=== PATIENT | male | born 1955 | race Caucasian/White ===

== ENCOUNTER 2020-04-26 13:36 | Day surgery (SDC) | payer BC, SELFPAY ==
[2020-04-26 14:13] VITALS: BP 109/62; PULSE 77; RESP 17; TEMP 36.4; O2SAT 96
--- NOTE | 2020-04-26 14:20 | DI.RAD_ITS ---
EXAM: XR ANKLE LT COMPLETE CLINICAL HISTORY: pain and swelling TECHNIQUE: 2D digital imaging was performed. COMPARISON: No exams were available for comparison FINDINGS: BONES: There is an acute fracture at the junction of the middle and distal thirds of the left fibula. The distal fracture is displaced laterally 1/3 shaft's width and anteriorly 1/3 shaft's width. No bony destructive lesion is seen. There is a small plantar calcaneal spur. JOINTS:There is widening of the medial ankle joint. This may reflect ligamentous and/or syndesmotic injury. SOFT TISSUE: There is soft tissue swelling about the ankle. IMPRESSION: 1. Acute displaced transverse fracture of the distal fibula. 2. Widening of the medial aspect of the ankle mortise joint which could reflect ligamentous and/or sy ndesmotic injury. DATA REPOSITORY: RADIATION DOSE DELIVERED:
--- NOTE | 2020-04-26 14:32 | DI.VRAD_ITS ---
PROCEDURE INFORMATION: Exam: XR Left Ankle Exam date and time: 04/26/2020 2:18 PM Age: 65 years old Clinical indication: Other: Pain and swelling TECHNIQUE: Imaging protocol: XR Left ankle. Views: 3 or more views. COMPARISON: No relevant prior studies available. FINDINGS: Bones/joints: There is a transverse fracture of distal fibular shaft with 3 mm anterior displacement and 5 mm lateral displacement. There is widening of medial aspect of ankle mortise joint. There is soft tissue swelling over distal leg, most pronounced anteriorly and over and inferior to medial malleolus. There is plantar spur. There is mild ankle joint effusion. Soft tissues: See Bones/joints finding. IMPRESSION: 1. Acute transverse fracture of distal fibular shaft . 2. Widening of the medial aspect of ankle mortise joint could reflect ligamentous and /or syndesmotic injury. Might consider evaluation of the whole tibia and fibula. Dictated and Authenticated by: Mirza Huntley MD. Ordering:MANUEL Iglesias MD
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
--- NOTE | 2020-04-26 14:45 | DI.RAD_ITS ---
EXAM: XR TIB/FIB LT CLINICAL HISTORY: left distal transverse fib fx, assess fib. TECHNIQUE: 2D digital imaging was performed COMPARISON: CR,XR XR ANKLE LT COMPLETE from 04/26/2020 FINDINGS: BONES: The fracture at the junction of the middle and distal thirds of the fibula is again noted. On the lateral view, there has been increased anterior displacement. The distal fracture is displaced almost 1 shaft's width anteriorly. There is also a nondisplaced fracture at the junction of the prox imal and middle thirds of the fibula. The visualized portions of the knee are unremarkable except fo r degenerative changes. The ankle is not well visualized on the current examination. SOFT TISSUE: Normal. IMPRESSION: 1. Nondisplaced fracture of the junction of the proximal middle thirds of the left fibula. 2. Increased anterior displacement of the previously seen fracture at the junction of the middle and distal thirds of the fibula. DATA REPOSITORY: RADIATION DOSE DELIVERED:
--- NOTE | 2020-04-26 15:26 | DI.VRAD_ITS ---
PROCEDURE INFORMATION: Exam: XR Left Tibia and Fibula Exam date and time: 04/26/2020 3:06 PM Age: 65 years old Clinical indication: Injury or trauma; Fall; Initial encounter; Fracture, traumatic; Closed fracture; Fibula; Left; Additional info: Ankle xray previously taken TECHNIQUE: Imaging protocol: XR Left tibia and fibula. Views: 2 views. COMPARISON: No relevant prior studies available. FINDINGS: Bones/joints: There is a nondisplaced oblique fracture of proximal fibula. There is an oblique fibular shaft fracture which now has shortening and 7-8 mm anterior displacement Soft tissues: There is soft tissue, most anterolateral aspect IMPRESSION: Nondisplaced oblique fracture of the proximal fibular shaft. Interval increase in displacement of the distal fibular shaft fracture. Dictated and Authenticated by: Mirza Huntley MD. Ordering:MANUEL Iglesias MD
--- NOTE | 2020-04-26 16:33 | W.PM.HP.N ---
Date of service: 04/26/20 Time of Service: 16:34 Assessment and Plan Assessment and plan (1) Bimalleolar fracture of left ankle: Status: Acute Assessment and plan: Assessment: Closed bimalleolar fracture equivalent of the left ankle with disruption of the ankle mortise joint. This will require open reduction internal fixation to restore the ankle mortise. Plan: Proceed to the operating room later today for ORIF of his a bimalleolar fracture equivalent left ankle under spinal anesthesia. (2) Fracture of proximal end of fibula: Status: Acute Assessment and plan: Assessment: Fracture proximal third of left fibula minimally displaced. This will not require fixation or reduction. Plan: Symptomatic treatment only with restricted weightbearing on the left. History of Present Illness History of Present Illness Chief Complaint: L leg and ankle injury Narrative: This is a 65-year-old white male who was unloading his truck today when he slipped and fell off the back of the truck. He landed on his left ankle with an external rotation twist. In addition the object he was lifting landed on his left leg and ankle. His son came was able to help him lift the object off his leg, but he found that he could not bear any weight on his left ankle. They also noted a deformity of the ankle. He was brought to the ER at [facility] where x-rays revealed a bimalleolar fracture equivalent of his ankle, closed. The also revealed a second fracture of his fibula more proximally in the leg. The ankle mortise was disrupted with the talus shifted about a half of its width laterally. He indicates that he had nothing to eat or drink since 7 this morning. He said that if I thought that surgery was necessary he would like to have it done today then wait. Review of Systems Narrative: Admits to hypertension which he states has been well controlled with medications. He is a type II diabetic treated with oral agents only. Does not take insulin. Does not test his blood sugars regularly. Otherwise he denies any shortness of breath, chest pains. Remainder review systems is noncontributory. [facility] Medical History (Updated 04/26/20 @ 16:49 by Miguel Gamble MD) Diabetes HTN (hypertension) Hx of hyperlipidemia Surgical History (Updated 04/26/20 @ 16:30 by Kelsie Slater DO) History of umbilical hernia repair S/P left knee arthroscopy Social History Smoking/Tobacco Use Status: Never Alcohol Intake: current Alcohol Intake frequency: a few times a month Substance use type: does not use Do you feel safe at home: Yes Do you feel safe in your relationship?: Yes Meds Home Medications and Allergies Home Medications Medication Instructions Recorded Confirmed Type atorvastatin 10 mg PO DAILY 04/26/20 04/26/20 History canagliflozin [Invokana] 100 mg DAILY 04/26/20 04/26/20 History hydrochlorothiazide 25 mg PO DAILY 04/26/20 04/26/20 History lisinopril 40 mg PO DAILY 04/26/20 04/26/20 History metformin 1,000 mg PO BID 04/26/20 04/26/20 History sitagliptin [Januvia] 100 mg PO DAILY 04/26/20 04/26/20 History Allergies Allergy/AdvReac Type Severity Reaction Status Date / Time penicillin V [From Pen-Vemanohar K] AdvReac Unverified 04/26/20 16:26 Exam Narrative Exam Narrative: Left foot is somewhat externally rotated and the talus appears to be shifted laterally there is localized bruising over the tip of the medial malleolus but no break in the skin. He has normal light touch sensation to his left foot and toes. He has a superficial abrasion proximal third of the lateral leg over his fibula. He is tender to touch over the medial lateral sides of the ankle and over the fibula proximally. Const General: cooperative and healthy appearing [facility] Head: normal to inspection Ears: hearing grossly normal bilaterally General nose exam: external nose normal and no nasal discharge Face and sinus: normal facial exam Mouth: lip normal and tongue normal Teeth and gingiva: dentition normal Throat: posterior oropharynx normal Eyes General: appearance normal, both eyes and all related structures Neck Neck: full ROM, no lymphadenopathy, trachea midline, supple and no JVD Carotids: normal carotid upstroke Chest Chest: normal inspection of the chest Resp Effort & Inspection: normal respiratory effort Cardio Rate: regular rate Rhythm: regular rhythm Heart Sounds: S1 normal Pulses: brachial pulses present, radial pulses present, posterior tibial pulses present and dorsalis pedis present GI Palpation: soft Percussion: normal to percussion Auscultation: normal bowel sounds Rectal Exam: deferred Male General Exam: Yes normal external exam Neuro General: patient alert, patient oriented x3, moves all extremities and normal light touch, pain and propioception Cranial Nerves: CN's II-XI intact bilaterally Cognition: normal cognition Speech: speech normal Motor: muscle tone normal throughout Sensory Exam: no sensory deficits noted Pupils: Normal pupillary reactivity/response: bilateral Results X-rays of the left ankle and left leg are reviewed. X-rays of the leg show that he has 2 fracture of his fibula. Proximal third of the fibula there is a minimally displaced fracture. Distal third of the fibula there is a short oblique fracture that is more displaced. Medial malleolus and posterior malleolus are intact. The talus is shifted laterally one third of its width, consistent with a rupture of the deltoid ligament. Ankle joint is reduced on the lateral film. Last Vital Signs Temp 36.4 C L 04/26/20 14:13 Pulse 77 04/26/20 14:13 Resp 17 04/26/20 14:13 BP 109/62 04/26/20 14:13 Pulse Ox 96 04/26/20 14:13 COVID-19 Screening Have you,or household,traveled outside [place] in last 14 days?: No Had IN PERSON contact w/suspected or confirmed C-19 person: No
--- NOTE | 2020-04-26 16:45 | DI.RAD_ITS ---
EXAM: XR ANKLE LT COMPLETE CLINICAL HISTORY: Bimalleolar fracture of left ankle TECHNIQUE: 2D and realtime digital imaging was performed. CONTRAST MATERIAL: Refer to procedure report. COMPARISON: CR,XR XR TIB/FIB LT from 04/26/2020 CR,XR XR ANKLE LT COMPLETE from 04/26/2020 FINDINGS: Fluoroscopy was provided for Dr. Gamble during the performance of a reduction and internal fixation of the distal fibular fracture. Please refer to the procedure report for complete details. Fluoro time: 33.4 seconds IMPRESSION: RADIATION DOSE DELIVERED:
[2020-04-26 16:48] VITALS: BP 111/73; PULSE 74; RESP 18; TEMP 36.6; O2SAT 94
--- NOTE | 2020-04-26 16:49 | NUR.NOTE ---
pt was seen by Dr Gamble who splinted the left lower extremie . pt anticipates the OR his Jing knows Nursing Note:
[2020-04-26] MEDS: Bupivacaine 0.5% Pres-Free 30 ML VIAL (17:32)
[2020-04-26] MEDS: Lactated Ringers 1,000 ML 30 ML IV (17:38)
[2020-04-26] MEDS: ceFAZolin 2 GM/50 ML BAG 50 GM (18:05)
--- NOTE | 2020-04-26 18:56 | W.PM.DSUDISC ---
Discharge Plan Disposition Patient Disposition: HOME Condition: Stable Discharge Details Reason For Visit: ORIF OF BIMALLEOLAR FX L ANKLE Attending Provider: Miguel Gamble Primary Care Provider: Tonie Patten Home Meds and New Rx's Prescriptions: Continued atorvastatin 10 mg tablet 10 mg PO DAILY RF: 0 metformin 1,000 mg tablet 1,000 mg PO BID RF: 0 hydrochlorothiazide 25 mg tablet 25 mg PO DAILY RF: 0 lisinopril 40 mg tablet 40 mg PO DAILY RF: 0 Invokana 100 mg tablet 100 mg DAILY RF: 0 Januvia 100 mg tablet 100 mg PO DAILY RF: 0 Discharge Instructions Additional Instructions: Crutches to walk. Don't step on splint. May rest splint on floor for balance when standing still.(like brushing your teeth or shaving) Try to elevate L ankle on 1-2 pillows as much as possible for next 72 hours to limit swelling. Keep splint and dressings dry and in place until you return to see . Follow up with on 05/06/20. Call his office tomorrow to make appointment.( [phone]) Take ibuprofen 800 mg(4 tabs) every 6 hours if needed for pain. May take tylenol 1,000 mg every 6 hours for pain in addition to the ibuprofen, if ibuprofen is not enough to stop the pain. Referrals: Miguel Gamble MD [ [facility] STAFF PHYSICIAN] - (f/u on 05/06/20) Equipment/Supplies: Non-Weight Bearing Crutches and Splint Activity:: Activity as Tolerated Remove Dressings/Wound Care:: Do Not Remove Shower/Bathe:: Cover Diet:: As Tolerated Discharge Orders Discharge Orders: Discharge Order (Routine); Ordered 04/26/20 Ordered By: Miguel Gamble DS: Diagnosis Discharge Diagnosis (1) Bimalleolar fracture of left ankle: Status: Acute (2) Fracture of proximal end of fibula: Status: Acute
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
[2020-04-26 19:34] VITALS: BP 102/67; PULSE 69; RESP 17; TEMP 36.5; O2SAT 93
[2020-04-26 20:01] VITALS: BP 105/72; PULSE 72; RESP 17; TEMP 36.5; O2SAT 93
[2020-04-27 12:08] LABS: COVID-19 RT-PCR UVMMC Result Negative (Negative)
== END 2020-04-26 21:20 | disposition home or self-care (01) ==
LOC: ER 16:25 → SUR 16:55 → MS 19:31
PROVIDERS: Emergency Provider Physician Assistant; Visit Provider Orthopaedic Surgery
PROC: (CPT 27814; principal; 2020-04-26 16:45)
DX: S82.842A Displaced bimalleolar fracture of left lower leg, initial encounter for closed fracture (principal); Z11.59 Encounter for screening for other viral diseases; I10 Essential (primary) hypertension; E11.9 Type 2 diabetes mellitus without complications; E78.5 Hyperlipidemia, unspecified; W17.89XA Other fall from one level to another, initial encounter
CPT/HCPCS: 27814; 36416; 76000; 82962; 96374; 99221; 99285; U0003; 73590; 73610; G0378; J0690; J1885; J2250; J2405; J2704

== ENCOUNTER 2020-05-06 10:40 | Outpatient (CLI) | payer BC, SELFPAY ==
--- NOTE | 2020-05-06 10:30 | DI.RAD_ITS ---
EXAM: XR ANKLE LT COMPLETE INDICATION: f/u orif. COMPARISON: XR ANKLE LT COMPLETE from 04/26/2020 CR,XR XR ANKLE LT COMPLETE from 04/26/2020 TECHNIQUE: 2D digital imaging was performed. FINDINGS: Soft tissue swelling remains present. There has been no change in fracture or hardware alignment. DATA REPOSITORY: RADIATION DOSE DELIVERED:
== END 2020-05-06 11:00 ==
PROVIDERS: PCP Neuromusculoskeletal Medicine & OMM; Referring Provider Neuromusculoskeletal Medicine & OMM; Visit Provider Orthopaedic Surgery
DX: S82.892D Other fracture of left lower leg, subsequent encounter for closed fracture with routine healing (principal)
CPT/HCPCS: 73610

== ENCOUNTER 2020-05-13 11:31 | Outpatient (CLI) | payer BC, SELFPAY ==
--- NOTE | 2020-05-13 09:46 | DI.RAD_ITS ---
EXAM: XR ANKLE LT COMPLETE CLINICAL HISTORY: f/u TECHNIQUE: COMPARISON: CR XR ANKLE LT COMPLETE from 05/06/2020 FINDINGS: Three views were obtained. There is plate and screw fixation of the distal fibula and the tibiofibul ar joint. Alignment appears unchanged comparison with previous examination of May 06. Ankle mortise is well maintained. IMPRESSION: RADIATION DOSE DELIVERED: Total DLP
== END 2020-05-13 11:51 ==
PROVIDERS: PCP Neuromusculoskeletal Medicine & OMM; Referring Provider Neuromusculoskeletal Medicine & OMM; Visit Provider Orthopaedic Surgery
DX: S82.842D Displaced bimalleolar fracture of left lower leg, subsequent encounter for closed fracture with routine healing (principal)
CPT/HCPCS: 73610

== ENCOUNTER 2020-06-10 14:48 | Outpatient (CLI) | payer BC, SELFPAY ==
--- NOTE | 2020-06-10 09:00 | DI.RAD_ITS ---
EXAM: XR ANKLE LT COMPLETE CLINICAL HISTORY: f/u surgery. TECHNIQUE: 2D digital imaging was performed. COMPARISON: CR XR ANKLE LT COMPLETE from 05/13/2020 FINDINGS: BONES: There are stable post operative changes present. No new fracture or dislocation. There has be en no change in alignment of the left fibular fracture. JOINTS: The joint spaces are well maintained. No joint effusion is present. SOFT TISSUE: Mild soft tissue swelling about the ankle. IMPRESSION: Stable postoperative changes. DATA REPOSITORY: RADIATION DOSE DELIVERED:
== END 2020-06-10 15:08 ==
PROVIDERS: PCP Neuromusculoskeletal Medicine & OMM; Visit Provider Orthopaedic Surgery
DX: S82.492A Other fracture of shaft of left fibula, initial encounter for closed fracture (principal)
CPT/HCPCS: 73610

== ENCOUNTER 2020-07-08 11:08 | Outpatient (CLI) | payer BC, SELFPAY ==
--- NOTE | 2020-07-08 09:45 | DI.RAD_ITS ---
EXAM: XR ANKLE LT COMPLETE CLINICAL HISTORY: s/p orif L ankle. TECHNIQUE: 2D digital imaging was performed. COMPARISON: Prior study 06/10/2020 FINDINGS: Again noted is the lateral fixation plate across the fibular fracture site secured by screws and also 2 parallel syndesmotic screws again noted. Fracture line is still visible but nondisplaced. No wid ening of the mortise. No obvious loosening no radiographic evidence of osteomyelitis.. 7 millimeter inferior calcaneal spur noted IMPRESSION: Stable appearance. DATA REPOSITORY: RADIATION DOSE DELIVERED:
== END 2020-07-08 11:28 ==
PROVIDERS: PCP Neuromusculoskeletal Medicine & OMM; Referring Provider Neuromusculoskeletal Medicine & OMM; Visit Provider Orthopaedic Surgery
DX: S82.892A Other fracture of left lower leg, initial encounter for closed fracture (principal)
CPT/HCPCS: 73610

== ENCOUNTER 2021-12-20 08:27 | Emergency (ER) | payer BC, SELFPAY ==
[2021-12-20 08:37] VITALS: BP 147/84; PULSE 73; RESP 16; TEMP 36.4; O2SAT 98
--- NOTE | 2021-12-20 09:03 | ED.GENADUL_ITS ---
Discharge Plan Disposition Patient Disposition: HOME Condition: Stable Discharge Details Clinical Impression: BRBPR (bright red blood per rectum) Primary Care Provider: Aram Way ED Provider: Bety Lutz Home Meds and New Rx's Prescriptions: Continued metformin 1,000 mg tablet 1,000 mg PO DAILY Label Comments: TAKE ONE TABLET BY MOUTH TWICE A DAY hydrochlorothiazide 25 mg tablet 25 mg PO DAILY Label Comments: TAKE ONE TABLET BY MOUTH EVERY DAY lisinopril 40 mg tablet 40 mg PO DAILY Label Comments: TAKE ONE TABLET BY MOUTH EVERY DAY Invokana 100 mg tablet 100 mg DAILY Label Comments: TAKE ONE TABLET BY MOUTH EVERY DAY Januvia 100 mg tablet 100 mg PO DAILY Label Comments: TAKE ONE TABLET BY MOUTH EVERY DAY metoprolol succinate 50 mg tablet extended release 24 hr 1 tab PO DAILY Label Comments: TAKE ONE TABLET BY MOUTH EVERY DAY metformin 1,000 mg Tablet 1,000 mg PO DAILY PRN Rx Instructions: goes by sugar results. Held aspirin 81 mg Tablet,Delayed Release (Dr/Ec) 81 mg PO DAILY Hold Instructions: Resume on 12/27/21. please hold until reevaluated by general surgery Discharge Instructions Instructions: Rectal Bleeding (ED) Additional Instructions: Your physical exam was concerning for blood near your rectum. However, your lab s are quite reassuring and you are not anemic as a result of this. General surgery would like to follow-up with you in the office as soon as possible and likely schedule for colonoscopy. Referral has been sent, please call, number listed below, to schedule follow-up appointment. In the meantime, please hold your aspirin. Encourage hydration, stay away from any red food. If you develop increased bleeding, abdominal pain, rectal pain, fever/chills, weakness or other new/worsening please seek care urgently once again. Otherwise, please follow-up with general surgery regarding your bright red blood per rectum. Please follow-up with your primary care for continued management of your diabetes as your glucose was noted to be quite elevated here today. Referrals: Aram Way [Primary Care Provider] - Lesley Joy MD [ [facility] STAFF PHYSICIAN] - Medical Decision Making Patient is a pleasant 56-year-old male, accompanied by his , with chief complaint of bright red blood per rectum. He reports this began on Monday. States that his bowel movements have otherwise been normal having about 1/day. He states that the blood has not been mixed into the stool but rather most noticeable on the toilet paper. However, he just states there have been a few clots in the toilet. He has not had any abdominal pain, rectal pain. No hematuria, easy bruising, bleeding gums. Patient is not anticoagulated. He denies any fevers or chills. Past surgical history is pertinent for umbilical hernia repair in the 1980s. He states his last colonoscopy was over 10 years ago and was completed here. He denies ever having been diagnosed with diverticulum. No family history colorectal cancers. On exam, patient appears nontoxic. Lungs are clear, normal cardiac exam. Patient denies any shortness of breath or chest pain. Abdominal exam is benign, no pain elicited. Rectal exam showed some dried blood around the anal orifice. No notable hemorrhoids. Patient did have bright red blood on rectal exam, prostate is nontender, no palpable hemorrhoids. Primarily concerned this time for bleeding close to the sphincter. Patient has not had any bleeding into the clothing, is not having any bleeding noted when he is not having an active bowel movement. I do not see any indication to suggest a higher bleed. Most likely associated with bleeding diverticulum or internal hemorrhoids. As the patient is concerned about the amount of blood he has been passing and that there was notable blood with rectal exam, will obtain CBC to evaluate for any potential anemia. We will also obtain coagulation studies. CBC without any abnormalities. INR and PTT are currently elevated liver enzymes are within normal limits. Not feel that this is playing into the position bleeding at this time. CMP concerning for glucose of 361. I did discuss this with the patient and he reports that he can occasionally jump up like this but that overall his A1c has been well maintained and he does check his glucose on a regular interval. Always associated with the last night and that he did have a donut for breakfast today. Has a scheduled follow-up appointment for reevaluation with his primary care. Consulted with Dr. Joy. Advised that she would like to see the patient first in the office soon and will likely schedule for outpatient colonoscopy. Discussed his recommendations with the patient and his . Encourage close follow-up with primary care regarding his hyperglycemia. Strict return precautions were discussed. Referral for general surgery has been sent, patient and his will call to schedule follow-up appointment soon as possible. All of his concerns and concerns were addressed and he is agreement this plan. HPI General Date/Time Provider Initiated Documentation: 12/20/21 08:33 . Limitations to Documentation: no limitations . Information obtained by: patient, family () and RN notes reviewed . History of Present Illness 66 year old M presents to the emergency department with the chief complaint of bright red blood per rectum, described as moderate, Quality is described as other (patient denies any associated discomfort), and is localized to the buttocks. Patient started experiencing this day(s) (2) and it has been constant. No relieving factors improve symptom(s), No exacerbating factors reported . Patient notes no other symptoms.. Patient did receive the following treatments prior to arrival, none Related Data Home Medications Medication Instructions Recorded Confirmed canagliflozin 100 mg tablet 100 mg DAILY 04/26/20 12/20/21 (Invokana) hydrochlorothiazide 25 mg tablet 25 mg PO DAILY 04/26/20 12/20/21 lisinopril 40 mg tablet 40 mg PO DAILY 04/26/20 12/20/21 metformin 1,000 mg tablet 1,000 mg PO DAILY 04/26/20 12/20/21 sitagliptin 100 mg tablet (Januvia) 100 mg PO DAILY 04/26/20 12/20/21 aspirin 81 mg tablet,delayed 81 mg PO DAILY 12/20/21 12/20/21 release metformin 1,000 mg tablet 1,000 mg PO DAILY PRN 12/20/21 12/20/21 metoprolol succinate 50 mg 1 tab PO DAILY 12/20/21 12/20/21 tablet,extended release 24 hr Allergies Allergy/AdvReac Type Severity Reaction Status Date / Time penicillin V [From Pen-Vee K] AdvReac Unverified 12/20/21 08:41 General Stated Complaint: GI Bleed SARAVANAN: 3 Review of Systems Constitutional Constitutional: Reports as per HPI, Denies chills, Denies fever(s) and Denies headache(s) ENT Ears, Nose, Mouth, and Throat: Denies headache(s) Cardiovascular Cardiovascular: Reports as per HPI, Denies chest pain and Denies dyspnea Respiratory Respiratory: Reports as per HPI, Denies cough and Denies dyspnea Gastrointestinal Gastrointestinal: Reports as per HPI Genitourinary Genitourinary: Denies system reviewed and no additional complaints, except as documented (patient denies any change in urinary habits) Musculoskeletal Musculoskeletal: Reports as per HPI and Denies back pain Integumentary/Breasts Skin/Breast: Reports as per HPI and Denies rash Neurologic Neurologic: Reports as per HPI and Denies headache(s) Hematologic/Lymphatic Hematologic/Lymphatic: Denies easy bleeding and Denies easy bruising PFSH All Active Problems BRBPR (bright red blood per rectum) (Acute) Fracture of proximal end of fibula (Acute 04/26/20) Bimalleolar fracture of left ankle (Acute 04/26/20) S/P ORIF: 04/26/2020 Medical History Diabetes HTN (hypertension) Hx of hyperlipidemia Surgical History History of umbilical hernia repair S/P left knee arthroscopy Social History Smoking/Tobacco Use Status: Never Smoking risk assessment performed?: Yes Alcohol Intake: current Alcohol Intake frequency: a few times a month Drug use: Never Substance use type: does not use Current gender identity: male Do you feel safe at home: Yes Do you feel safe in your relationship?: Yes Exam Const General: cooperative, healthy appearing, comfortable, no acute distress and well developed Nutritional Appearance: well nourished and overweight Orientation: alert and awake HENMT Head: normal to inspection Mouth: moist mucous membranes Resp Effort & Inspection: normal respiratory effort, able to speak in complete sentences and no respiratory distress Auscultation: clear to auscultation bilaterally, no rales, no rhonchi and no wheezes Cardio Rate: regular rate Rhythm: regular rhythm Heart Sounds: S1 normal and S2 normal GI Inspection: normal to inspection and other (well healed surgical incision to umbilical area) Palpation: soft, no hepatosplenomegaly, no guarding, no masses, not rigid and nontender Percussion: normal to percussion and no fluid wave Auscultation: normal bowel sounds Rectal Exam: visual inspection normal (dried red blood around anus), normal sphincter tone, prostate normal, abnormal stool with ria blood, No fecal impaction, No fissure, heme positive stool, No hemorrhoids, No laceration, No mass, symmetric and No tenderness Skin General skin exam: no rashes or lesions noted Trauma: no lacerations or abrasions Neuro General: patient alert and patient awake Cognition: normal cognition Speech: speech normal Gait: normal gait Psych Appearance: grossly normal and well kempt Mental Status: mental status grossly normal Speech and Movement: speech and movement normal Course Vital Signs Vital signs: Vital Signs Temperature 36.4 C L 12/20/21 08:37 Pulse 73 12/20/21 08:37 Respiratory Rate 16 12/20/21 08:37 Blood Pressure 147/84 H 12/20/21 08:37 Pulse Oximetry 98 12/20/21 08:37 Temperature 36.4 C L 12/20/21 08:37 Temperature Source Temporal Artery Scan 12/20/21 08:37 Pulse 73 12/20/21 08:37 Respiratory Rate 16 12/20/21 08:37 Respiratory Effort Non-Labored 12/20/21 08:40 Blood Pressure 147/84 H 12/20/21 08:37 Blood Pressure Position Sitting 12/20/21 08:37 Pulse Oximetry 98 12/20/21 08:37 Oxygen Delivery Method Room Air 12/20/21 08:37 Oxygen Flow Rate 0 12/20/21 08:37 Pain Level 0 12/20/21 08:41
[2021-12-20] MEDS: Normal Saline Flush 10 ML SYR IVP (09:11)
[2021-12-20 09:20] LABS: Abs Immature Grans 0.01 10^3/uL (0.0-0.06); Absolute Basophil Count 0.04 10^3/uL (0.0-0.2); Absolute Lymphocyte Count 1.34 10^3/uL (1.2-3.4); Absolute Monocyte Count 0.74 10^3/uL (0.1-0.8); Absolute Neutrophil Count 3.99 10^3/uL (1.2-6.7); Basophils % 0.6; Eosinophils % 1.6; HCT 40.9 % (40.0-50.0); HGB 13.9 g/dL (13.5-17.5); Immature Grans % 0.2; Lymphocytes % 21.5; MCH 29.2 pg (27.0-33.0); MCV 86 fL (80-95); Monocytes % 11.9; Neutrophils % 64.2; Platelet Count 169 10^3/uL (130-400); RBC 4.76 10^6/uL (4.36-5.78); RDW 12.8 % (11.8-14.1); RDW-SD 39.8 fL; WBC 6.22 10^3/uL (4.4-10.8)
[2021-12-20 09:28] LABS: INR 1.2 (0.9-1.1); Prothrombin Time 11.7 sec (9.3-11.0)
[2021-12-20 09:36] LABS: ALT 24 U/L (16-63); AST 12 U/L (15-37); Albumin 3.5 g/dL (3.4-5.0); Alkaline Phosphatase 83 U/L (46-116); BUN 20 mg/dL (7-18); Bilirubin, Total 0.9 mg/dL (0.2-1.0); CREATININE 1.1 mg/dL (0.70-1.30); Calcium 8.3 mg/dL (8.5-10.1); Chloride 100 mmol/L (98-107); Glucose 361 mg/dL (74-106); Potassium 3.9 mmol/L (3.5-5.1); Sodium 135 mmol/L (136-145); Total Protein 6.8 g/dL (6.4-8.2)
--- NOTE | 2021-12-20 09:49 | NUR.NOTE ---
Nursing Note: Referral faxed to [facility] for bright red blood per rectum, DARRYL. Jyotsna Martin
[2021-12-20 10:36] VITALS: BP 118/74; PULSE 69; RESP 17; TEMP 36.6; O2SAT 99
== END 2021-12-20 10:42 | disposition home or self-care (01) ==
PROVIDERS: Emergency Provider Physician Assistant; PCP Neuromusculoskeletal Medicine & OMM
DX: K62.5 Hemorrhage of anus and rectum (principal); R79.89 Other specified abnormal findings of blood chemistry
CPT/HCPCS: 36415; 80053; 99283; 85025; 85610

== ENCOUNTER 2022-01-05 10:06 | Day surgery (SDC) | payer BC, SELFPAY ==
--- NOTE | 2022-01-05 06:41 | COLE_ITS ---
Colonoscopy Report Date of procedure: 01/05/22 Pre-op diagnosis general: colon cancer screening and hemorrhoids Procedure: Colonoscopy with polypectomy Surgeon: Lesley Joy Anesthesia Type: General:No Airway Estimated blood loss (mL): 2 Pathology: other (ascending polyps x2, transverse polyps x2, descending polyps x2) Complications: None Disposition: same day Indications: Mr. Ralph is a pleasant 66-year-old gentleman who is due for a screening colonoscopy.? He also had a few days of blood per rectum.? This was bright red and mostly on the toilet paper.? We discussed the differential which includes internal hemorrhoids, bleed from a diverticulum, large polyp or mass.? As he is not having any other GI issues I suspect that he is got some internal hemorrhoids.? We did discuss internal hemorrhoid banding at the time of colonoscopy which she is agreeable to.? Risks, benefits and complications were reviewed with him and he wished to proceed. Risks, benefits and complications have been reviewed. Complications include but are not limited to bleeding, pain, perforation, missed small lesion/polyp, sore throat, aspiration and adverse reaction to the medications. Questions were entertained and answered to their satisfaction and they wished to proceed. No guarantees were given or implied. I have asked him to not take the metformin or lisinopril the morning of the procedure.? Continue to hold aspirin until after the procedure. Proceed with colonoscopy and internal hemorrhoid banding Prep: Miralax/Dulcolax Procedure Start Time: 13:05 Procedure End Time: 13:41 Retraction Time: 19 minutes Findings: multiple polyps singleton diverticulosis Procedure Description: After informed consent was obtained the patient was taken to the procedure room and placed in a left decubitous position. Monitors were applied and a time out was done. The patients name, date of , procedure, allergies to medications and metal in their body was reviewed. The patient was then sedated. Once sedated and comfortable a rectal exam was done. External exam was normal. Internal exam revealed a normal sphincter tone and no palpable masses. The prostate felt smooth and enlarged. The scope was then introduced and retro-flexed. No internal hemorrhoids, polyps or masses were identified on retro-flexion. The scope was then advanced to the cecum without difficulty. The ileocecal vlave and appendiceal orifice were identified. The prep was adequate. The scope was then slowly retracted over 19 minutes back into the rectum. Polyps were removed with cold forceps in the ascending colon x2, transverse colon x1 and descending colon x1; and with a hot snare in the Transverse colon. There was singleton-diverticulosis noted. The scope was removed and the patient was woken up and taken back to Same day surgery in stable condition. The patient tolerated the procedure well and there were no immediate compli cations. Follow up: The patient should follow up in 3-5 years unless they develop changes in bowel habits or other new gastrointestinal complaints.
--- NOTE | 2022-01-05 06:42 | PDOC.DSDIS_ITS ---
Discharge Plan Disposition Patient Disposition: HOME Condition: Good Discharge Details Reason For Visit: Colonoscopy Attending Provider: Lesley Joy Primary Care Provider: Aram Way [place] Meds and New Rx's Prescriptions: Continued cholecalciferol (vitamin D3) 25 mcg (1,000 unit) capsule 25 mcg PO DAILY multivitamin Tablet 1 tab PO DAILY hydrochlorothiazide 25 mg tablet 25 mg PO DAILY Label Comments: TAKE ONE TABLET BY MOUTH EVERY DAY lisinopril 40 mg tablet 40 mg PO DAILY Label Comments: TAKE ONE TABLET BY MOUTH EVERY DAY Invokana 100 mg tablet 100 mg DAILY Label Comments: TAKE ONE TABLET BY MOUTH EVERY DAY Januvia 100 mg tablet 100 mg PO DAILY Label Comments: TAKE ONE TABLET BY MOUTH EVERY DAY metformin 1,000 mg tablet 1,000 mg PO BID Label Comments: TAKE ONE TABLET BY MOUTH TWICE A DAY metoprolol succinate 50 mg tablet extended release 24 hr 1 tab PO DAILY Label Comments: TAKE ONE TABLET BY MOUTH EVERY DAY aspirin 81 mg Tablet,Delayed Release (Dr/Ec) 81 mg PO DAILY Hold Instructions: Resume on 12/27/21. please hold until reevaluated by general surgery Discontinued bisacodyl [Dulcolax (bisacodyl)] 5 mg tablet,delayed release (DR/EC) 5 mg PO ONCE Qty: 4 0RF Rx Instructions: Take according to provider's instructions for colonoscopy prep. polyethylene glycol 3350 17 gram/dose powder 17 g PO ONCE Qty: 238 0RF Rx Instructions: To be taken as directed by prescriber's office for colonoscopy prep. Discharge Instructions Instructions: Diverticulosis (DC), Colorectal Polyps (DC) Additional Instructions: Findings: 6 polyps and diverticulosis Follow up: 3-5 years Please call if you develop: fevers >101.5 Nausea or Vomiting Abdominal pain that is not transient Rectal bleeding that is more then a tbsp A hard abdomen and inability to pass gas DAY SURGERY UNIT POST ENDOSCOPY INSTRUCTIONS Instructions for everyone who is given Anesthesia: For your safety, please do the following for the next 24 Hours: a. Do not drive or operate dangerous equipment b. Do not drink alcohol beverages or use any recreational drugs for the first 24 hours or while taking pain medications. The medications in your body may have a reaction that can be dangerous. c. Do not make any important decisions or sign any important papers 1. Generally there are no restrictions on your activity after a day or so has gone by, but you may feel a bit fatigued for a few days. 2. After you arrive home you may have a light meal and return to a normal diet as you can tolerate it without feeling sick to your stomach. 3. After surgery, you may feel pain or discomfort. This should be only transient, but if it persists please contact your doctor. 4. If there are any questions regarding the findings of your procedure, please feel free to contact your doctor. 6. If you are unable to contact your doctor with a problem, contact the hospital at [phone]. 7. Continue all your regular medications unless directed otherwise. I understand the above instructions and have no questions. Signature of Patient or Responsible Adult Escort Date/Time Name of Responsible Adult Escort Signature of Nurse Date/Time Activity:: Activity as Tolerated Diet:: high fiber diet Discharge Orders Discharge Orders: Discharge Order (Routine); Ordered 01/05/22 Ordered By: Lesley Joy
[2022-01-05 10:15] VITALS: BP 133/91; PULSE 61; RESP 16; TEMP 36.7; O2SAT 98
[2022-01-05] MEDS: Lactated Ringers 1,000 ML 80 ML IV (10:40)
--- NOTE | 2022-01-05 11:36 | ANES.PREOP_ITS ---
General Info Date of Service Date Performed: 01/05/22 Height: 5 ft 11 in Weight: 103.6 kg Body Mass Index (BMI): 31.8 Surgical Procedure: Operation Date: 01/05/22 13:05 Proposed Procedure Side Surgeon p Colonoscopy, Possible Hemorrhoid Banding Lesley Joy MD Meds Allergies and Home Medications Allergies Allergy/AdvReac Type Severity Reaction Status Date / Time penicillin V [From Pen-Vee K] AdvReac Other (See Unverified 01/05/22 10:22 Comment) Home Medication Medication Instructions Recorded canagliflozin 100 mg tablet 100 mg DAILY 04/26/20 (Invokana) hydrochlorothiazide 25 mg tablet 25 mg PO DAILY 04/26/20 lisinopril 40 mg tablet 40 mg PO DAILY 04/26/20 sitagliptin 100 mg tablet (Januvia) 100 mg PO DAILY 04/26/20 aspirin 81 mg tablet,delayed 81 mg PO DAILY 12/20/21 release metoprolol succinate 50 mg 1 tab PO DAILY 12/20/21 tablet,extended release 24 hr bisacodyl 5 mg tablet,delayed 5 mg PO ONCE #4 tabs 12/21/21 release (Dulcolax (bisacodyl)) cholecalciferol (vitamin D3) 25 25 mcg PO DAILY 12/21/21 mcg (1,000 unit) capsule metformin 1,000 mg tablet 1,000 mg PO BID 12/21/21 multivitamin 1 tab PO DAILY 12/21/21 polyethylene glycol 3350 17 17 g PO ONCE #238 grams 12/21/21 gram/dose oral powder Current Visit Medications: Current Medications Generic Name Dose Route Start Last Admin Trade Name Davinq PRN Reason Stop Dose Admin Hyoscyamine Sulfate 0.125 mg 01/05/22 06:43 Hyoscyamine 0.125 Mg Sl/Oral/Chew SL DIRECTED PRN Ringer's Solution 1,000 mls @ 80 mls/hr 01/05/22 06:00 01/05/22 10:40 IV 02/03/22 23:59 80 mls/hr INFUSION MAUREEN Administration IV Miscellaneous Supplies 1 each 01/05/22 06:00 Iv Access IV 02/03/22 23:59 DIRECTED MAUREEN Ondansetron HCl 4 mg 01/05/22 06:43 Ondansetron 4 Mg/2 Ml Vial IVP Q4H PRN PRN Nausea / Vomiting Sodium Chloride 0 ml 01/05/22 06:00 Normal Saline Flush 10 Ml Syr IV 02/03/22 23:59 PRN PRN Sodium Chloride 0 ml 01/05/22 06:00 Normal Saline 10 Ml Vial IJ 02/03/22 23:59 DIRECTED PRN Sterile Water 0 ml 01/05/22 06:00 Water,Injection,Sterile 10 Ml Vial IJ 02/03/22 23:59 DIRECTED PRN PFSH Active Problems Active Problems: Problem Status Onset Code Encounter for colorectal cancer screening Z12.11, Z12.12 BRBPR (bright red blood per rectum) K62.5 Medical History Medical History Diabetes Fracture of proximal end of fibula (04/26/20) HTN (hypertension) Hx of hyperlipidemia Surgical History Surgical History Bimalleolar fracture of left ankle (04/26/20) S/P ORIF: 04/26/2020 History of umbilical hernia repair S/P colonoscopy (~02/01/10) S/P left knee arthroscopy Tobacco Smoking/Tobacco Use Status: Never Alcohol Alcohol Intake: current Alcohol intake frequency: a few times a month Substance Use Substance use: Never Substance use type: does not use Vital Signs and Lab Results Vital Signs Most Recent Vital Signs in EMR: Most Recent Vital Signs Temp Pulse Resp BP Pulse Ox 36.7 C 61 16 133/91 H 98 01/05/22 10:15 01/05/22 10:15 01/05/22 10:15 01/05/22 10:15 01/05/22 10:15 Point of Care Results Point of Care Results: Finger Stick Blood Glucose 289 01/05/22 10:47 Lab Results Blood Type / Crossmatch: No Data to Display Complete Blood Count: White Blood Count 6.22 10^3/uL (4.4-10.8) 12/20/21 09:05 Red Blood Count 4.76 10^6/uL (4.36-5.78) 12/20/21 09:05 Hemoglobin 13.9 g/dL (13.5-17.5) 12/20/21 09:05 Hematocrit 40.9 % (40.0-50.0) 12/20/21 09:05 Platelet Count 169 10^3/uL (130-400) 12/20/21 09:05 Complete Metabolic Panel: Sodium Level 135 mmol/L (136-145) L 12/20/21 09:05 Potassium Level 3.9 mmol/L (3.5-5.1) 12/20/21 09:05 Chloride Level 100 mmol/L (98-107) 12/20/21 09:05 Carbon Dioxide Level 27.0 mmol/L (21.0-32.0) 12/20/21 09:05 Blood Urea Nitrogen 20 mg/dL (7-18) H 12/20/21 09:05 Creatinine 1.1 mg/dL (0.70-1.30) 12/20/21 09:05 Estimated GFR/1.73 m2 >= 60.00 (mL/min/1.73m2) 12/20/21 09:05 Calcium Level 8.3 mg/dL (8.5-10.1) L 12/20/21 09:05 Albumin 3.5 g/dL (3.4-5.0) 12/20/21 09:05 Glucose Level 361 mg/dL (74-106) H 12/20/21 09:05 Liver Function Panel: Alanine Aminotransferase (ALT/SGPT) 24 U/L (16-63) 12/20/21 09: 05 Aspartate Amino Transf (AST/SGOT) 12 U/L (15-37) L 12/20/21 09: 05 Coagulation Panel: INR International Normalized Ratio 1.2 (0.9-1.1) H 12/20/21 09 :05 Prothrombin Time 11.7 sec (9.3-11.0) H 12/20/21 09:05 Cardiac Panel: No Data to Display Arterial Blood Gas: No Data to Display Venous Blood Gas: No Data to Display Pancreas Panel: No Data to Display Thyroid Panel: No Data to Display Infectious Disease: No Data to Display Blood Cultures: No Data to Display Toxicology Panel: No Data to Display Anesthesia Assessment and Plan Anesthesia History Personal History: No History of Anesthesia Complications Family History: No Family History of Anesthesia Complications Exercise Tolerance Exercise Tolerance: Metabolic Equivalents>4 Pertinent Negatives Pertinent Negatives: No Symptoms of GERD, No Major Cardiovascular Symptoms or Complaints and No Major Pulmonary Symptoms or Complaints Cardiac & Pulmonary Exam Cardiac Exam: Normal S1/S2 Heart Sounds Pulmonary Exam: Clear Bilateral Breath Sounds Implantable Cardiac Device Does patient have a Pacemaker or an ICD?: No Airway Exam Known Difficult Airway: No Mallampati Class: 2 Mouth Opening: Normal (> 3cm) Thyromental Distance: Greater than 3 cm Neck Range of Motion: Full ROM Neck Circumference: Normal Teeth Condition: Generalized Poor Dentition ASA Classification ASA Score: ASA 2 Emergency Case?: No NPO Status NPO Status: NPO Clears >2 hours, Solids >8 hours Anesthesia Plan Resuscitation Status: Full Code Anesthesia Technique: General Anesthesia Airway Planned: Natural Airway Monitors Used: Standard Monitors
[2022-01-05 11:51] VITALS: BMI 31.8
--- NOTE | 2022-01-05 13:19 | BOWEL_PTH ---
PATIENT: Jose Ralph LOC: [facility] U#:[id number] AGE/SX: 66/M ROOM: RE01/05/[address]: Lesley Joy MD : 1955 BED: DIS: 01/05/2022 SPEC #: [id number] RECD: 01/05/22 17:36 STATUS: ESTEPHANIA REQ #: [id number] MARGI: 01/05/22 13:[address]: Lesley Joy DEPT: Surgical Specimen RECD BY: Diana Monae ENTERED: 01/05/22 17:38 SP TYPE: Bowel OTHR DR: Aram Way Tissues: 1 - BIOPSY BOWEL 2 - BIOPSY BOWEL 3 - BIOPSY BOWEL Procedures: GROSS AND MICRO LEVEL 4 Comments: [id number]
[2022-01-05 13:45] VITALS: BP 118/82; PULSE 62; RESP 15; TEMP 36.5; O2SAT 97
--- NOTE | 2022-01-05 14:29 | W.ANESPOSTOP ---
Postoperative Evaluation Date, Time and Location Date Performed: 01/05/22 Time Performed: 14:29 Patient Location: Day Surgery Unit Vital Signs Most Recent Imported Vital Signs: Most Recent Vital Signs Temp Pulse Resp BP Pulse Ox 36.5 C 62 15 118/82 97 01/05/22 13:45 01/05/22 13:45 01/05/22 13:45 01/05/22 13:45 01/05/22 13:45 Pain Score Most Recent Pain Score: Most Recent Pain Score Pain Level 0 01/05/22 13:45 Assessment Mental Status: Awake (Alert & Oriented to Patient Baseline) Airway and Respiratory Function: Patent airway with normal (patient baseline) respiratory exam Cardiovascular Function: Hemodynamically Stable Hydration Status: Adequately Hydrated Nausea & Vomiting: No Nausea or Vomiting Pain: Pt. Denies Any Pain Peripheral Nerve Block: Patient did not receive a nerve block
== END 2022-01-05 14:35 | disposition home or self-care (01) ==
PROVIDERS: PCP Neuromusculoskeletal Medicine & OMM; Visit Provider Surgery
PROC: 0DJD8ZZ Inspection of Lower Intestinal Tract, Via Natural or Artificial Opening Endoscopic (ICD-10-PCS; CPT 45378; principal; 2022-01-05 13:00)
DX: Z12.11 Encounter for screening for malignant neoplasm of colon (principal); K63.5 Polyp of colon; K57.30 Diverticulosis of large intestine without perforation or abscess without bleeding; E11.9 Type 2 diabetes mellitus without complications
CPT/HCPCS: 45385; 45380; 88305

== ENCOUNTER 2023-01-06 16:48 | Emergency (ER) | payer OTHER, BC, SELFPAY ==
--- NOTE | 2023-01-06 | DI.CT_ITS ---
Exam(s) CT CHEST/ABD/PEL W EXAM: CT CHEST/ABD/PEL W CLINICAL HISTORY: trauma, left sided abdominal pain TECHNIQUE: Imaging Protocol: Axial computed tomography images with coronal and sagittal reformatted images were created and reviewed CONTRAST MATERIAL: Intravenous: Omnipaque 350 contrast volume:100 mL Oral: No COMPARISON: There are no priors for comparison. FINDINGS: CHEST: Tracheobronchial tree: Patent where visualized. Pulmonary parenchyma: There is a small to moderate left pleural effusion with a small subjacent infil trate in the left lower lobe. This probably represents atelectasis. No architectural distortion. Visualized thyroid gland: There is a tiny 5 mm hypodensity in the left lobe of the thyroid gland. No follow-up is recommended. Mediastinum and Helga: No dominant adenopathy or fluid collection. The esophagus is unremarkable. The re is a small hiatal hernia. Pleura: No right pleural effusion or pneumothorax. Heart: The heart is not dilated. Mild coronary artery calcification is present. No pericardial effus ion. Pulmonary arteries: Due to the timing of the bolus the peripheral pulmonary arteries could not be sinan luated. No large central pulmonary embolus is seen. Aorta: Thoracic aorta non-dilated. Atherosclerosis. Lymph nodes: Within normal limits. Soft tissues: Unremarkable. Bones:Within normal limits for the patient's age. There is a mildly displaced fracture of the environmental health safety engineer olateral aspect of the left 7th rib. There does appear to be some callus formation beginning around this fracture suggesting a subacute nature. There are subacute fractures involving the left 7th thro ugh 9th ribs anteriorly. ABDOMEN: Liver: Normal density. There is a 1.6 cm simple cyst in the right lobe of the liver. No follow-up is recommended. No suspicious masses are seen. Portal, Superior Mesenteric, and Splenic Veins: Unremarkable. Gallbladder and Biliary Tract: No radiodense calculus or dilation. Pancreas: Normal density. Punctate calcifications are seen in the head of the pancreas. This can be seen with chronic pancreatitis. Spleen: Splenic lacerations are present. There is a large heterogeneous subcapsular hematoma along t he lateral aspect of the spleen measuring 4 cm in thickness. The splenic hilum is unremarkable. Adrenals: No masses seen. Kidneys: Normal size, contour and axis. No radiodense stones or obstructive uropathy. There is a 5.3 cm simple cyst in the superior pole of the right kidney. No follow-up is recommended. No evidence o f a renal laceration. Abdominal Aorta: Abdominal portion non-dilated. Atherosclerosis. Bowel: There is diverticulosis in the colon, but no evidence of acute diverticulitis. There is no ev idence of bowel obstruction or bowel wall thickening. No evidence of appendicitis. Peritoneal Cavity: Hyperdense fluid is seen in the pelvis consistent with hemoperitoneum. No free ai r. Lymph Nodes: Within normal limits. Bones: Within normal limits for the patient's age. Soft Tissues: Unremarkable. PELVIS: Bladder: Symmetric distention, no gross wall thickening. Reproductive Organs: Unremarkable as visualized. Lymph Nodes: Within normal limits. Bones: Within normal limits. IMPRESSION: 1. Subacute appearing left rib fractures as described above. 2. Moderate sized left pleural effusion with subjacent atelectasis. No pneumothorax. 3. Grade 4 splenic injury with large subcapsular hematoma and parenchymal contusion. 4. Moderate amount of hemoperitoneum in the pelvis. RADIATION DOSE DELIVERED: 1,660.17mGy.cm Total DLP DATA REPOSITORY: All CT scans at this facility are submitted to the National Radiology Data Registry (NRDR) Dose Index Registry (DIR) with the [employer] (A[employer]). RADIATION OPTIMIZATION: All CT scans at this facility use at least one of these dose optimization te chniques: automated exposure control; mA and/or kV adjustment per patient size (includes targeted exa ms where dose is matched to clinical indication); or iterative reconstruction.
[2023-01-06 16:51] VITALS: BP 125/80; PULSE 80; RESP 16; TEMP 37.2; O2SAT 96
[2023-01-06 17:34] LABS: Abs Immature Grans 0.02 10^3/uL (0.0-0.06); Absolute Basophil Count 0.04 10^3/uL (0.0-0.2); Absolute Eosinophil Count 0.45 10^3/uL (0.0-0.7); Absolute Lymphocyte Count 1.14 10^3/uL (1.2-3.4); Absolute Monocyte Count 0.81 10^3/uL (0.1-0.8); Absolute Neutrophil Count 3.99 10^3/uL (1.2-6.7); Basophils % 0.6; HCT 35.8 % (40.0-50.0); HGB 11.7 g/dL (13.5-17.5); Immature Grans % 0.3; Lymphocytes % 17.7; MCH 27.9 pg (27.0-33.0); MCHC 32.7 % (32.0-36.0); MCV 85 fL (80-95); Monocytes % 12.6; Neutrophils % 61.8; Platelet Count 244 10^3/uL (130-400); RDW 13.7 % (11.8-14.1); RDW-SD 42.3 fL; WBC 6.45 10^3/uL (4.4-10.8)
[2023-01-06] MEDS: Normal Saline 1,000 ML 1000 ML IV (17:41)
[2023-01-06 17:43] LABS: INR 1.2 (0.9-1.1); Prothrombin Time 11.8 sec (9.3-11.0)
[2023-01-06 17:48] LABS: ALT 22 U/L (16-63); AST 24 U/L (15-37); Albumin 3.4 g/dL (3.4-5.0); Alkaline Phosphatase 81 U/L (46-116); Anion Gap 7.8 mmol/L (3-11); BUN 25 mg/dL (7-18); Bilirubin, Total 1.1 mg/dL (0.2-1.0); CO2 25.2 mmol/L (21.0-32.0); Calcium 8.3 mg/dL (8.5-10.1); Chloride 104 mmol/L (98-107); Estimated GFR 82.49 (mL/min/1.73m2); Glucose 136 mg/dL (74-106); Potassium 3.8 mmol/L (3.5-5.1); Sodium 137 mmol/L (136-145); Total Protein 7.1 g/dL (6.4-8.2)
[2023-01-06 17:51] LABS: Bilirubin Negative (Negative); Blood Negative (Negative); Clarity Clear (Clear); Glucose >=1000 mg/dL (Negative); Ketones Negative (Negative); Leukocyte Esterase Negative (Negative); Nitrite Negative (Negative); Specific Gravity 1.015 (1.005-1.025); Urobilinogen 0.2 mg/dL (Up to 0.2)
[2023-01-06] MEDS: Normal Saline Flush 10 ML SYR IVP (18:14)
[2023-01-06] MEDS: Normal Saline - Diluent 50 ML VIAL IJ (18:14)
[2023-01-06] MEDS: Omnipaque 350 MG/ML 100 ML BTL IJ (18:15)
--- NOTE | 2023-01-06 18:49 | DI.VRAD_ITS ---
Addendum created by Indy Torres MD on 01/06/2023 6:51:29 PM EDT: Correction : The pertinent findings were verbally communicated via telephone with Dr. Tristan at 6:51 PM EDT on 01/06/2023. The findings were acknowledged and understood. Addendum created by Indy Torres MD on 01/06/2023 6:50:57 PM EDT: THIS REPORT CONTAINS FINDINGS THAT MAY BE CRITICAL TO PATIENT CARE. The pertinent findings were verbally communicated via telephone with DEMIAN CHANG at 6:50 PM EDT on 01/06/2023. The findings were acknowledged and understood. Initial report created on 01/06/2023 6:48:34 PM EDT: PROCEDURE INFORMATION: Exam: CT Chest With Contrast; Diagnostic Exam date and time: 01/06/2023 6:18 PM Age: 67 years old Clinical indication: Injury or trauma; Fall; Luq; Blunt trauma (contusions or hematomas); Injury date: X 1 mo ago; Injury details: PT. Fell about a month ago. Patient HX: Recent left sided abdominal pain x 1 week TECHNIQUE: Imaging protocol: Diagnostic computed tomography of the chest with contrast. 3D rendering (Not supervised by radiologist): MIP and/or 3D reconstructed images were created by the technologist. Contrast material: OMNIPAQUE 350; Contrast volume: 100 ml; Contrast route: INTRAVENOUS (IV); COMPARISON: No relevant prior studies available. FINDINGS: Lungs: Mild compressive atelectasis in the left lung base. Pleural spaces: Moderate left pleural fluid appears simple. No hemothorax or pneumothorax. Heart: Mild cardiomegaly. Trace pericardial fluid appears likely physiologic. Lymph nodes: No enlarged lymph nodes. Vasculature: Mild ascending aortic aneurysm proximally 44 mm. Normal caliber of the descending aorta.. Bones/joints: Left posterolateral 7th rib fracture with slight healing and mild angulation. Likely subacute. Soft tissues: No suspicious lesions. IMPRESSION: 1. Subacute appearing left posterolateral 7th rib fracture with slight healing and mild angulation. 2. Moderate left pleural fluid appears simple. No hemothorax or pneumothorax. 3. Mild compressive atelectasis in the left lung base. 4. Additional findings as described. PROCEDURE INFORMATION: Exam: CT Abdomen And Pelvis With Contrast Exam date and time: 01/06/2023 6:18 PM Age: 67 years old Clinical indication: Injury or trauma; Fall; Luq; Blunt trauma (contusions or hematomas); Injury date: X 1 mo ago; Injury details: PT. Fell about a month ago. Patient HX: Recent left sided abdominal pain x 1 week TECHNIQUE: Imaging protocol: Computed tomography of the abdomen and pelvis with contrast. 3D rendering (Not supervised by radiologist): MIP and/or 3D reconstructed images were created by the technologist. Contrast material: OMNIPAQUE 350; Contrast volume: 100 ml; Contrast route: INTRAVENOUS (IV); COMPARISON: No relevant prior studies available. FINDINGS: Liver: Benign-appearing hepatic cyst. No hepatic masses. Gallbladder and bile ducts: No calcified stones. No ductal dilation. Pancreas: No ductal dilation. No masses. Spleen: Subacute appearing splenic injury. Heterogeneous attenuation of the splenic parenchyma measuring up to 35 mm in diameter. No parenchymal hematoma. Spleen is enlarged to 15 cm AP. Subcapsular splenic collection, 16 x 14 x 5 cm, predominantly low-density however with some intermediate density peripheral components. 3 x 3 x 6 cm fluid collection in the left upper quadrant appears slightly encapsulated probably loculated to the subcapsular splenic collection. Faint peripheral enhancement. Adrenal glands: No mass. Kidneys and ureters: Benign-appearing renal cysts and probable cysts. No renal masses or hydronephrosis bilaterally. Stomach and bowel: Colonic diverticulosis without diverticulitis. No focal pathology in the small bowel. Appendix: No evidence of appendicitis. Intraperitoneal space: No free air. Moderate volume of hemorrhagic fluid in the pelvis, favor predominantly subacute. Vasculature: No abdominal aortic aneurysm. Lymph nodes: No significantly enlarged lymph nodes. Urinary bladder: Unremarkable as visualized. Reproductive: Unremarkable as visualized. Bones/joints: Degenerative changes in the spine. No acute fracture or subluxation. Soft tissues: No suspicious lesions. IMPRESSION: 1. Subacute appearing splenic injury. Large subacute appearing subcapsular hematoma; subacute appearing grade 4 parenchymal contusion. 2. 3 x 3 x 6 cm fluid collection in the left upper quadrant appears slightly encapsulated probably loculated to the subcapsular splenic collection. Faint peripheral enhancement, correlate clinically for any concern of infection. 3. Moderate volume of hemorrhagic fluid in the pelvis, favor predominantly subacute. 4. Additional findings as described. Dictated and Authenticated by: Indy Torres MD. Ordering:KEISHA Pope MD
--- NOTE | 2023-01-06 20:02 | ED.GENADUL_ITS ---
Discharge Plan Disposition Patient Disposition: Transfer-Acute Inpatient Care Specific Acute Inpt Facility: [facility] Condition: Stable Discharge Details Clinical Impression: Closed injury of spleen Primary Care Provider: Aram Way ED Provider: Toshia Flores Home Meds and New Rx's Prescriptions: Continued cholecalciferol (vitamin D3) 25 mcg (1,000 unit) capsule 25 mcg PO DAILY multivitamin Tablet 1 tab PO DAILY Artificial Tears (saúl/min) 83-15 % ointment 1 applic ophthalmic (eye) BID-QID PRN atorvastatin 10 mg tablet 10 mg PO DAILY omega 8-zpm-ygt-fish oil [Fish Oil] 1,000 mg (120 mg-180 mg) capsule 1 cap PO DAILY Jardiance 10 mg tablet 10 mg PO DAILY vitamin E (dl, acetate) 45 mg (100 unit) capsule 45 mg PO DAILY zinc acetate 50 mg (zinc) capsule 50 mg PO DAILY hydrochlorothiazide 25 mg tablet 25 mg PO DAILY Patient Comments: TAKE ONE TABLET BY MOUTH EVERY DAY lisinopril 40 mg tablet 40 mg PO DAILY Patient Comments: TAKE ONE TABLET BY MOUTH EVERY DAY Invokana 100 mg tablet 100 mg DAILY Patient Comments: TAKE ONE TABLET BY MOUTH EVERY DAY Januvia 100 mg tablet 100 mg PO DAILY Patient Comments: TAKE ONE TABLET BY MOUTH EVERY DAY metformin 1,000 mg tablet 1,000 mg PO BID Patient Comments: TAKE ONE TABLET BY MOUTH TWICE A DAY atorvastatin 10 mg tablet 10 mg PO DAILY Patient Comments: TAKE ONE TABLET BY MOUTH AT BEDTIME Januvia 100 mg tablet 100 mg PO DAILY Patient Comments: TAKE ONE TABLET BY MOUTH EVERY DAY metoprolol succinate 50 mg tablet extended release 24 hr 1 tab PO DAILY Patient Comments: TAKE ONE TABLET BY MOUTH EVERY DAY Held aspirin 81 mg Tablet,Delayed Release (Dr/Ec) 1 mg DAILY Hold Instructions: until discussed with trauma aspirin 81 mg Tablet,Delayed Release (Dr/Ec) 81 mg PO DAILY Hold Instructions: duplicate Medical Decision Making This is a 67-year-old male patient who fell approximately a month ago stating he suspected a left rib fracture who was improving from that but then a week ago developed this excruciating left sided abdominal pain. He states that he became diaphoretic and short of breath with an episode of severe pain that woke him up during the middle the night. He states his symptoms slowly improved but that the pain still persists especially when he bends over. Symptoms most concerning for splenic injury. Will obtain IV access give 1 L of normal saline in anticipation of a contrasted CT scan of the chest abdomen and pelvis. Routine labs. CT scan results are reviewed and call placed to trauma at [facility]. Discussed with Dr Sinclair who has accepted the patient in transfer for further management. He has remained hemodynamically stable with pain controlled while awaiting transport. He is to be transported to [facility] by ground EMS. Medical Records Medical records reviewed: Yes I reviewed the patient's medical records. HPI General Mode of arrival: ambulatory . Date/Time Provider Initiated Documentation: 01/06/23 16:52 . Limitations to Documentation: no limitations . Information obtained by: patient . HPI Narrative: This is a 67-year-old male patient with a history of diabetes mellitus type 2 hypertension dyslipidemia who presents to the emergency department for evaluation of left sided abdominal and rib pain. He reports he had a mechanical fall approximately 1 month ago landing on his left side with pain at that time to his left lateral rib cage. He reports feeling clicking and suspected he had a rib fracture at that time as he has had rib fractures in the past which felt similar. He had no other injury and decided not to seek medical attention at that time because he assumed it would be similar to previous rib fracture instr uction to include pain management and respiratory toileting so he did not seek care. He reports that the rib pain slowly improved over time to the point that he was actually able to sleep on his left side. He reports approximately 1 week ago he was awoken during the night with excruciating left upper quadrant pain. He states he became diaphoretic dizzy with this severe pain. At that time he as sumed he just rolled over onto his hand causing pain over his fractured rib area. He states that over some time the pain slowly subsided. He states he was able to ambulate around that night without worsening pain. He continued to have the pain but that to slowly subsided so he did not seek medical attention. He reports that the pain never fully resolved and that when he bends over to tie his shoes he continues to have this sharp pain in that area so at his 's insistence he presented for evaluation. He denies any lightheadedness. He has had some mild shortness of breath with activity and a nonproductive dry cough. He has had no fever Related Data Home Medications Medication Instructions Recorded Confirmed canagliflozin 100 mg tablet 100 mg DAILY 04/26/20 01/06/23 (Invokana) hydrochlorothiazide 25 mg tablet 25 mg PO DAILY 04/26/20 01/06/23 lisinopril 40 mg tablet 40 mg PO DAILY 04/26/20 01/06/23 sitagliptin phosphate 100 mg 100 mg PO DAILY 04/26/20 01/06/23 tablet (Januvia) aspirin 81 mg tablet,delayed 81 mg PO DAILY 12/20/21 01/06/23 release metoprolol succinate 50 mg 1 tab PO DAILY 12/20/21 01/06/23 tablet,extended release 24 hr cholecalciferol (vitamin D3) 25 25 mcg PO DAILY 12/21/21 01/06/23 mcg (1,000 unit) capsule metformin 1,000 mg tablet 1,000 mg PO BID 12/21/21 01/06/23 multivitamin 1 tab PO DAILY 12/21/21 01/06/23 atorvastatin 10 mg tablet 10 mg PO DAILY 08/18/22 01/06/23 empagliflozin 10 mg tablet 10 mg PO DAILY 08/18/22 01/06/23 (Jardiance) omega 5-vzl-ykq-fish oil 1,000 mg 1 cap PO DAILY 08/18/22 01/06/23 (120 mg-180 mg) capsule (Fish Oil) vitamin E (dl, acetate) 45 mg (100 45 mg PO DAILY 08/18/22 01/06/23 unit) capsule white petrolatum-mineral oil 83 1 applic ophthalmic (eye) BID-QID 08/18/22 01/06/23 %-15 % eye ointment (Artificial PRN Tears (petrolatum/mineral oil)) zinc acetate 50 mg (zinc) capsule 50 mg PO DAILY 08/18/22 01/06/23 aspirin 81 mg tablet,delayed 1 mg DAILY 01/06/23 01/06/23 release atorvastatin 10 mg tablet 10 mg PO DAILY 01/06/23 01/06/23 sitagliptin phosphate 100 mg 100 mg PO DAILY 01/06/23 01/06/23 tablet (Januvia) Allergies Allergy/AdvReac Type Severity Reaction Status Date / Time doxycycline Allergy Intermediate Verified 08/18/22 11:40 penicillin V [From Pen-Vee K] AdvReac Other (See Unverified 01/05/22 10:22 Comment) General Stated Complaint: Abd Prob SARAVANAN: 3 Review of Systems All systems reviewed & are unremarkable except as noted in HPI and below PFSH All Active Problems (Updated 01/06/23 @ 20:15 by Toshia Flores NP) Closed injury of spleen (Acute) Inflammatory polyps (Acute) Tubular adenoma of colon (Acute) Medical History (Updated 01/06/23 @ 20:15 by Toshia Flores NP) Abnormal gait Diaz's palsy Benign essential hypertension Cardiac arrhythmia Diabetes Encounter for colorectal cancer screening Enlarged prostate Erectile dysfunction Fracture of ankle Fracture of proximal end of fibula (04/26/20) History of neck pain HTN (hypertension) Hx of hyperlipidemia Hyperlipidemia Neurological deficit present Obesity Type 2 diabetes mellitus Varicose veins of lower extremities with inflammation Verruca plantaris Surgical History (Updated 02/01/22 @ 09:48 by Salina Mahan RN) Bimalleolar fracture of left ankle (04/26/20) S/P ORIF: 04/26/2020 History of umbilical hernia repair S/P colonoscopy (~02/01/10) 01/2022 S/P left knee arthroscopy Social History Smoking/Tobacco Use Status: Never Smoking risk assessment performed?: Yes Alcohol Intake: current Alcohol Intake frequency: a few times a month Drug use: Never Substance use type: does not use Current gender identity: male Do you feel safe at home: Yes Additional Social history: Unable to assess privately Exam Const General: cooperative, comfortable and no acute distress Nutritional Appearance: overweight Orientation: alert, awake and oriented x3 HENMT Head: normal to inspection, normocephalic and atraumatic Mouth: oral mucosae normal Teeth and gingiva: poor dentition (Missing teeth) Neck Neck: normal visual inspection and full ROM Chest Chest: normal inspection of the chest Resp Effort & Inspection: normal respiratory effort Auscultation: rales bilaterally at the base Cardio Rate: regular rate Rhythm: regular rhythm GI Inspection: no abdominal wall ecchymosis and obesity Palpation: soft, no guarding, not rigid and tender in the LUQ Skin General skin exam: no rashes or lesions noted Neuro General: patient alert, patient awake and patient oriented x3 Extrem General: normal to inspection and full ROM Course Vital Signs Vital signs: Vital Signs Temperature 37.2 C 01/06/23 16:51 Pulse 80 01/06/23 16:51 Respiratory Rate 16 01/06/23 16:51 Blood Pressure 125/80 01/06/23 16:51 Pulse Oximetry 96 01/06/23 16:51 Temperature 37.2 C 01/06/23 16:51 Temperature Source Skin 01/06/23 16:51 Pulse 80 01/06/23 16:51 Respiratory Rate 16 01/06/23 16:51 Blood Pressure 125/80 01/06/23 16:51 Blood Pressure Position Sitting 01/06/23 16:51 Pulse Oximetry 96 01/06/23 16:51 Oxygen Delivery Method Room Air 01/06/23 16:51 Oxygen Flow Rate 0 01/06/23 16:51 Pain Level 5 01/06/23 16:51 Comment takes aleve intermittently for the pain 01/06/23 16:51 Lab/Test Results Lab/Test Results: Laboratory Tests Range/Units 01/06/23 01/06/23 01/06/23 17:22 17:22 17:22 WBC (4.4-10.8) 10^3/uL 6.45 RBC (4.36-5.78) 10^6/uL 4.20 L Hgb (13.5-17.5) g/dL 11.7 L Hct (40.0-50.0) % 35.8 L MCV (80-95) fL 85 MCH (27.0-33.0) pg 27.9 MCHC (32.0-36.0) % 32.7 RDW (11.8-14.1) % 13.7 Plt Count (130-400) 10^3/uL 244 MPV (8.0-11.0) fL 10.0 Immature Gran % 0.3 Neutrophils % 61.8 Lymphocytes % 17.7 Monocytes % 12.6 Eosinophils % 7.0 Basophils % 0.6 Nucleated RBC % (0.0-0.3) % 0.0 Absolute Neutrophils (1.2-6.7) 10^3/uL 3.99 Absolute Lymphocytes (1.2-3.4) 10^3/uL 1.14 L Absolute Monocytes (0.1-0.8) 10^3/uL 0.81 H Absolute Eosinophils (0.0-0.7) 10^3/uL 0.45 Absolute Basophils (0.0-0.2) 10^3/uL 0.04 PT (9.3-11.0) sec 11.8 H INR (0.9-1.1) 1.2 H Sodium (136-145) mmol/L 137 Potassium (3.5-5.1) mmol/L 3.8 Chloride (98-107) mmol/L 104 Carbon Dioxide (21.0-32.0) mmol/L 25.2 Anion Gap (3-11) mmol/L 7.8 BUN (7-18) mg/dL 25 H Creatinine (0.70-1.30) mg/dL 1.0 Est GFR (CKD-EPI 2020) (mL/min/1.73m2) 82.49 Glucose (74-106) mg/dL 136 H Calcium (8.5-10.1) mg/dL 8.3 L Total Bilirubin (0.2-1.0) mg/dL 1.1 H AST (15-37) U/L 24 ALT (16-63) U/L 22 Alkaline Phosphatase (46-116) U/L 81 Total Protein (6.4-8.2) g/dL 7.1 Albumin (3.4-5.0) g/dL 3.4 Urine Color (Yellow) Urine Clarity (Clear) Urine pH (5-8) Ur Specific [place] (1.005-1.025) Urine Protein (Negative) mg/dL Urine Ketones (Negative) mg/dL Urine Blood (Negative) Urine Nitrite (Negative) Urine Bilirubin (Negative) Urine Urobilinogen (Up to 0.2) mg/dL Ur Leukocyte Esterase (Negative) Urine Glucose (Negative) mg/dL Range/Units 01/06/23 17:36 WBC (4.4-10.8) 10^3/uL RBC (4.36-5.78) 10^6/uL Hgb (13.5-17.5) g/dL Hct (40.0-50.0) % MCV (80-95) fL MCH (27.0-33.0) pg MCHC (32.0-36.0) % RDW (11.8-14.1) % Plt Count (130-400) 10^3/uL MPV (8.0-11.0) fL Immature Gran % Neutrophils % Lymphocytes % Monocytes % Eosinophils % Basophils % Nucleated RBC % (0.0-0.3) % Absolute Neutrophils (1.2-6.7) 10^3/uL Absolute Lymphocytes (1.2-3.4) 10^3/uL Absolute Monocytes (0.1-0.8) 10^3/uL Absolute Eosinophils (0.0-0.7) 10^3/uL Absolute Basophils (0.0-0.2) 10^3/uL PT (9.3-11.0) sec INR (0.9-1.1) Sodium (136-145) mmol/L Potassium (3.5-5.1) mmol/L Chloride (98-107) mmol/L Carbon Dioxide (21.0-32.0) mmol/L Anion Gap (3-11) mmol/L BUN (7-18) mg/dL Creatinine (0.70-1.30) mg/dL Est GFR (CKD-EPI 2020) (mL/min/1.73m2) Glucose (74-106) mg/dL Calcium (8.5-10.1) mg/dL Total Bilirubin (0.2-1.0) mg/dL AST (15-37) U/L ALT (16-63) U/L Alkaline Phosphatase (46-116) U/L Total Protein (6.4-8.2) g/dL Albumin (3.4-5.0) g/dL Urine Color (Yellow) Yellow Urine Clarity (Clear) Clear Urine pH (5-8) 5.0 Ur Specific [place] (1.005-1.025) 1.015 Urine Protein (Negative) mg/dL Negative Urine Ketones (Negative) mg/dL Negative Urine Blood (Negative) Negative Urine Nitrite (Negative) Negative Urine Bilirubin (Negative) Negative Urine Urobilinogen (Up to 0.2) mg/dL 0.2 Ur Leukocyte Esterase (Negative) Negative Urine Glucose (Negative) mg/dL >=1000 H
[2023-01-06 20:17] VITALS: BP 118/86; PULSE 81; RESP 18; TEMP 36.8; O2SAT 96
== END 2023-01-06 21:27 | disposition short-term general hospital (02) ==
PROVIDERS: Emergency Provider Nurse Practitioner Acute Care; PCP Neuromusculoskeletal Medicine & OMM
DX: S36.09XA Other injury of spleen, initial encounter (principal); W01.0XXA Fall on same level from slipping, tripping and stumbling without subsequent striking against object, initial encounter
CPT/HCPCS: 36415; 74177; 80053; 96360; 99285; 71260; 81003; 85025; 85610; J3490

== ENCOUNTER 2023-01-15 14:41 | Emergency (ER) | payer OTHER, BC, SELFPAY ==
[2023-01-15] VITALS (50 sets, daily range): BP systolic 83–125; BP diastolic 59–105; PULSE 81–148; RESP 17–27; TEMP 36.8; O2SAT 60–97
--- NOTE | 2023-01-15 14:55 | ED.GENADUL_ITS ---
Discharge Plan Discharge Details Chief Complaint: Abd Prob Primary Care Provider: Aram Way ED Provider: Mir Mora Home Meds and New Rx's Prescriptions: No Action cholecalciferol (vitamin D3) 25 mcg (1,000 unit) capsule 25 mcg PO DAILY multivitamin Tablet 1 tab PO DAILY Artificial Tears (saúl/min) 83-15 % ointment 1 applic ophthalmic (eye) BID-QID PRN atorvastatin 10 mg tablet 10 mg PO DAILY omega 7-egz-fde-fish oil [Fish Oil] 1,000 mg (120 mg-180 mg) capsule 1 cap PO DAILY Jardiance 10 mg tablet 10 mg PO DAILY vitamin E (dl, acetate) 45 mg (100 unit) capsule 45 mg PO DAILY zinc acetate 50 mg (zinc) capsule 50 mg PO DAILY hydrochlorothiazide 25 mg tablet 25 mg PO DAILY Patient Comments: TAKE ONE TABLET BY MOUTH EVERY DAY lisinopril 40 mg tablet 40 mg PO DAILY Patient Comments: TAKE ONE TABLET BY MOUTH EVERY DAY Invokana 100 mg tablet 100 mg DAILY Patient Comments: TAKE ONE TABLET BY MOUTH EVERY DAY Januvia 100 mg tablet 100 mg PO DAILY Patient Comments: TAKE ONE TABLET BY MOUTH EVERY DAY metformin 1,000 mg tablet 1,000 mg PO BID Patient Comments: TAKE ONE TABLET BY MOUTH TWICE A DAY atorvastatin 10 mg tablet 10 mg PO DAILY Patient Comments: TAKE ONE TABLET BY MOUTH AT BEDTIME aspirin 81 mg Tablet,Delayed Release (Dr/Ec) 1 mg DAILY Hold Instructions: until discussed with trauma Januvia 100 mg tablet 100 mg PO DAILY Patient Comments: TAKE ONE TABLET BY MOUTH EVERY DAY metoprolol succinate 50 mg tablet extended release 24 hr 1 tab PO DAILY Patient Comments: TAKE ONE TABLET BY MOUTH EVERY DAY aspirin 81 mg Tablet,Delayed Release (Dr/Ec) 81 mg PO DAILY Hold Instructions: duplicate Medical Decision Making This is an overall well-appearing mildly tachycardic but not hypotensive nor febrile 67-year-old male 8 days status post splenic IR embolization in the setting of reported splenic laceration sustained from trauma last month. Given his worsening sudden abdominal pain will obtain a CT scan with IV contrast. We will also send type and screen in the event that the patient has any acute blood loss anemia. He denies any recurrent trauma. Anticipate signing patient out to the oncoming evening provider. We will treat his pain with 50 mcg of fentanyl and provide a 500 cc IV fluid bolus. He is not anginal anticoagulated and has been holding his aspirin. Right groin access site appears to be healing well with no hematoma. No epigastric tenderness to suggest pancreatitis. No right upper quadrant tenderness to suggest acute cholecystitis. No left lower quadrant tenderness to suggest diverticulitis. No right lower quadrant tenderness to suggest appendicitis. No pain out of proportion to suggest nec rotizing soft tissue infection. No signs of rash to left upper quadrant to suggest zoster. No shortness of breath or chest pain to suggest PE. No cough nor fevers to suggest pneumonia. Will defer ultimate disposition to the oncoming advanced practitioner pending labs and CT scan. Chronic conditions affecting the care of the patient: Diabetes History obtained from an outside historian: Patient's [place] [facility] [place] Medications: Fentanyl Social determinants of health affecting disposition: N/A Management discussed with: Jenny Barcenas Treatment/interventions considered: TBD Response to therapies provided: TBD HPI General Date/Time Provider Initiated Documentation: 01/15/23 14:42 . HPI Narrative: This is a diabetic 67-year-old male with history of dyslipidemia and hypertension arriving via private vehicle with his in the setting of left upper quadrant pain. Patient is 8 days status post IR guided splenic arterial embolism in the setting of splenic laceration sustained from trauma last month. He reported that he was hospitalized at [facility] and discharged off of his 81 mg aspirin. He was reportedly doing well at home but began having left-sided upper quadrant abdominal pain today. He has not had any recurrent trauma. He has not had any pain in his right groin access site. He had trouble standing and walking today. He has had no nausea no vomiting no fevers nor chills. Related Data Home Medications Medication Instructions Recorded Confirmed canagliflozin 100 mg tablet 100 mg DAILY 04/26/20 01/15/23 (Invokana) hydrochlorothiazide 25 mg tablet 25 mg PO DAILY 04/26/20 01/15/23 lisinopril 40 mg tablet 40 mg PO DAILY 04/26/20 01/15/23 sitagliptin phosphate 100 mg 100 mg PO DAILY 04/26/20 01/15/23 tablet (Januvia) aspirin 81 mg tablet,delayed 81 mg PO DAILY 12/20/21 01/15/23 release metoprolol succinate 50 mg 1 tab PO DAILY 12/20/21 01/15/23 tablet,extended release 24 hr cholecalciferol (vitamin D3) 25 25 mcg PO DAILY 12/21/21 01/15/23 mcg (1,000 unit) capsule metformin 1,000 mg tablet 1,000 mg PO BID 12/21/21 01/15/23 multivitamin 1 tab PO DAILY 12/21/21 01/15/23 atorvastatin 10 mg tablet 10 mg PO DAILY 08/18/22 01/15/23 empagliflozin 10 mg tablet 10 mg PO DAILY 08/18/22 01/15/23 (Jardiance) omega 1-yqj-inq-fish oil 1,000 mg 1 cap PO DAILY 08/18/22 01/15/23 (120 mg-180 mg) capsule (Fish Oil) vitamin E (dl, acetate) 45 mg (100 45 mg PO DAILY 08/18/22 01/15/23 unit) capsule white petrolatum-mineral oil 83 1 applic ophthalmic (eye) BID-QID 08/18/22 01/15/23 %-15 % eye ointment (Artificial PRN Tears (petrolatum/mineral oil)) zinc acetate 50 mg (zinc) capsule 50 mg PO DAILY 08/18/22 01/15/23 aspirin 81 mg tablet,delayed 1 mg DAILY 01/06/23 01/15/23 release atorvastatin 10 mg tablet 10 mg PO DAILY 01/06/23 01/15/23 sitagliptin phosphate 100 mg 100 mg PO DAILY 01/06/23 01/15/23 tablet (Januvia) Allergies Allergy/AdvReac Type Severity Reaction Status Date / Time doxycycline Allergy Intermediate Verified 08/18/22 11:40 penicillin V [From Pen-Vee K] AdvReac Other (See Unverified 01/05/22 10:22 Comment) General Stated Complaint: Abd Prob SARAVANAN: 3 PFSH All Active Problems (Updated 01/06/23 @ 20:15 by Toshia Flores NP) Closed injury of spleen (Acute) Inflammatory polyps (Acute) Tubular adenoma of colon (Acute) Medical History (Updated 01/06/23 @ 20:15 by Toshia Flores NP) Abnormal gait Diaz's palsy Benign essential hypertension Cardiac arrhythmia Diabetes Encounter for colorectal cancer screening Enlarged prostate Erectile dysfunction Fracture of ankle Fracture of proximal end of fibula (04/26/20) History of neck pain HTN (hypertension) Hx of hyperlipidemia Hyperlipidemia Neurological deficit present Obesity Type 2 diabetes mellitus Varicose veins of lower extremities with inflammation Verruca plantaris Surgical History (Updated 02/01/22 @ 09:48 by Salina Mahan RN) Bimalleolar fracture of left ankle (04/26/20) S/P ORIF: 04/26/2020 History of umbilical hernia repair S/P colonoscopy (~02/01/10) 01/2022 S/P left knee arthroscopy Social History Smoking/Tobacco Use Status: Never Smoking risk assessment performed?: Yes Alcohol Intake: current Alcohol Intake frequency: a few times a month Drug use: Never Substance use type: does not use Current gender identity: male Do you feel safe at home: Yes Do you feel safe in your relationship?: Yes Exam Narrative Exam Narrative: General: Well-appearing in no acute distress speaking in complete sentences. Head: Normocephalic, atraumatic. Eye: Extraocular eye movements intact. No conjunctival injection. No scleral icterus. Ear, nose, mouth, throat: Grossly normal inspection. Normal voice, handling secretions normally. Neck: Trachea midline. Cardiovascular: Well-perfused distal extremities. Rapid regular rate Respiratory: Nonlabored respiration. Clear lungs bilaterally. Gastrointestinal: Nondistended abdomen. Minimal left upper quadrant tenderness. No rebound. No guarding. No [place] Solis sign. No [place] sign. : Right groin access site has what appears to be resolving ecchymosis. No tenderness. No fluctuance. No signs of hematoma. Musculoskeletal: No edema. Moving all 4 extremities spontaneously. Skin: Normal for age and race, grossly normal temperature and turgor. No acute rash. Neurologic: Alert and appropriate, no apparent acute deficits. Psychiatric: Mood and manner are appropriate. Grooming and personal hygiene are appropriate. Course Vital Signs Vital signs: Vital Signs Temperature 36.8 C 01/15/23 14:47 Pulse 107 H 01/15/23 14:47 Respiratory Rate 01/15/23 14:47 Blood Pressure 122/80 01/15/23 14:47 Pulse Oximetry 97 01/15/23 14:47 Temperature 36.8 C 01/15/23 14:47 Temperature Source Oral 01/15/23 14:47 Pulse 107 H 01/15/23 14:47 Respiratory Rate 01/15/23 14:47 Blood Pressure 122/80 01/15/23 14:47 Blood Pressure Position Sitting 01/15/23 14:47 Pulse Oximetry 97 01/15/23 14:47 Oxygen Delivery Method Room Air 01/15/23 14:47 Oxygen Flow Rate 0 01/15/23 14:47 Pain Level 3 01/15/23 14:47
--- NOTE | 2023-01-15 15:00 | DI.CT_ITS ---
Exam(s) CT ABDOMEN PELVIS W EXAM: CT ABDOMEN PELVIS W CLINICAL HISTORY: Left upper quadrant pain status post recent spleni TECHNIQUE: Imaging Protocol: Axial computed tomography images with coronal and sagittal reformatted images were created and reviewed CONTRAST MATERIAL: Intravenous: Omnipaque 350 Contrast volume:100 mL Oral: No COMPARISON: CT CT CHEST/ABD/PEL W from 01/06/2023 FINDINGS: ABDOMEN: Lung Bases: There is a small left pleural effusion and left basilar infiltrate. There is a small hia silvano hernia. Coronary artery calcifications are present. The ascending thoracic aorta measures 4.5 c m. Liver: Normal density. There is a simple stable cyst in the right lobe of the liver. No follow-up is recommended. Portal, Superior Mesenteric, and Splenic Veins: Unremarkable. Gallbladder and Biliary Tract: No radiodense calculus or dilation. Pancreas: Normal density, no abnormal calcifications or inflammatory process. Spleen: The subcapsular fluid collection around the spleen now measures 14.3 x 4.8 cm. This has show n slight interval increase in size compared to 01/06/2023. There is also increased heterogeneity of th e spleen suggesting new areas of infarct, and particular, superiorly. There are areas of decreased a ttenuation within the spleen which were present on the prior examination which may represent lacerati on or infarcts. Adrenals: No masses seen. Kidneys: Normal size, contour and axis. No radiodense stones or obstructive uropathy. There is a stab le right renal cyst. No follow-up is recommended. Abdominal Aorta: Abdominal portion non-dilated. Atherosclerosis. Bowel: There is diverticulosis of the colon. There is mild thickening of the wall of the splenic fle xure with stranding in the surrounding soft tissues. There is no evidence of bowel obstruction. The remainder of the bowel is unremarkable. Appendix is unremarkable. Peritoneal Cavity: There is fluid seen in the pelvis which has decreased in size compared to the prio r examination. No free air. Lymph Nodes: Within normal limits. Bones: Within normal limits for the patient's age. Soft Tissues: Unremarkable. PELVIS: Bladder: Symmetric distention, no gross wall thickening. Reproductive Organs: Unremarkable as visualized. Lymph Nodes: Within normal limits. Bones: Within normal limits for the patient's age. IMPRESSION: 1. Slight increase in size of the subcapsular splenic fluid collection consistent with a hematoma. 2. New area of decreased attenuation in the superior portion of the spleen which may represent an inf arct. 3. Bowel wall thickening seen in the splenic flexure of the colon with surrounding inflammation. Thi s may represent a coexistent colitis/diverticulitis. There is a tiny focus of air which likely refle cts a diverticulum but tiny focus of extraluminal air cannot be entirely excluded. 4. Left pleural effusion and left basilar infiltrate which may represent atelectasis. Pneumonia leann ot be excluded. RADIATION DOSE DELIVERED: 1,275.92mGy.cm Total DLP DATA REPOSITORY: All CT scans at this facility are submitted to the National Radiology Data Registry (NRDR) Dose Index Registry (DIR) with the [employer] ([employer]). RADIATION OPTIMIZATION: All CT scans at this facility use at least one of these dose optimization te chniques: automated exposure control; mA and/or kV adjustment per patient size (includes targeted exa ms where dose is matched to clinical indication); or iterative reconstruction.
[2023-01-15 15:24] LABS: HCT 42.5 % (40.0-50.0); HGB 13.9 g/dL (13.5-17.5); MCH 27.6 pg (27.0-33.0); MCHC 32.7 % (32.0-36.0); MCV 85 fL (80-95); Platelet Count 423 10^3/uL (130-400); RBC 5.03 10^6/uL (4.36-5.78); RDW-SD 42.7 fL; WBC 18.26 10^3/uL (4.4-10.8)
[2023-01-15] MEDS: Normal Saline - Diluent 50 ML VIAL IJ (15:31)
[2023-01-15] MEDS: Omnipaque 350 MG/ML 100 ML BTL IJ (15:31)
[2023-01-15] MEDS: Normal Saline Flush 10 ML SYR IVP (15:32)
[2023-01-15 15:33] LABS: Anion Gap 9.4 mmol/L (3-11); BUN 34 mg/dL (7-18); CO2 24.6 mmol/L (21.0-32.0); CREATININE 1.3 mg/dL (0.70-1.30); Calcium 8.6 mg/dL (8.5-10.1); Chloride 98 mmol/L (98-107); Estimated GFR 60.21 (mL/min/1.73m2); Glucose 220 mg/dL (74-106); Potassium 3.8 mmol/L (3.5-5.1); Sodium 132 mmol/L (136-145)
--- NOTE | 2023-01-15 15:39 | ED.PROG_ITS ---
Date of service: 01/15/23 Time of Service: 15:39 Medical Decision Making Care assumed from provider (Dr. Abby BUCHANAN) Please see their initial HPI, PE, and documentation. Discussed patient details and case and pending workup and disposition. Patient is hemodynamically stable, and alert and oriented. At time of signout patient is awaiting lab results and CT results patient is here for some left upper quadrant abdominal pain status post a splenic laceration with embolization [place] [facility]. BMP shows a sodium of 132 B[address] images pushed to [facility] will consult with trauma CT noted below, slightly enlarging lane-splenic fluid collection with a development of a new superior splenic infarct. Surrounding stranding and questionable extraluminal air. 1604: [facility] transfer center called to discuss CT results. Patient sitting up in bed, BP slightly soft at 83 systolic, on re-eval it is 96/54 he reports no dizziness or lightheadedness, no pain at this time. He reports he was coughing alot recently before pain began. 1742: Transfer Center called again to inquire, have not heard back from trauma, at this time they are waiting for images to be uploaded. 1823: Spoke with Dr. Olivo he recommends ED to ED transfer due to softening BP and WBC elevation for possible overnight admission and re-evaluation, will arrange for transport. Discussed plan of care with patient and family who verbalized understanding and are in agreement with the plan. 4: EMS here for transport, patient DC'd in hemodynamically stable condition. NS at 125/hr. Medical Records Medical records reviewed: Yes I reviewed the patient's medical records. Medical records narrative: From Colleagues previous chart HPI. This is a diabetic 67-year-old male with history of dyslipidemia and hypertension arriving via private vehicle with his in the setting of left upper quadrant pain.? Patient is 8 days status post IR guided splenic arterial embolism in the setting of splenic laceration sustained from trauma last month.? He reported that he was hospitalized at [facility] and discharged off of his 81 mg aspirin.? He was reportedly doing well at home but began having left-sided upper quadrant abdominal pain today.? He has not had any recurrent trauma.? He has not had any pain in his right groin access site.? He had trouble standing and walking today.? He has had no nausea no vomiting no fevers nor chills. Imaging Data Radiologic Study: Imaging: CT Scan Radiologist's impression: IMPRESSION: Enlarging perisplenic fluid attenuation collection with apparent interval development of superior splenic infarct. There is adjacent inflammatory change in the pericolonic tissues at the splenic flexure level. Trace extraluminal air at this level is not excludable versus artifact from diverticular formation. Thank you for allowing us to participate in the care of your patient. Dictated and Authenticated by: Grazyna Cox MD Lab Data Lab results reviewed: Yes I reviewed the patient's lab results. Labs: Laboratory Tests Range/Units 01/15/23 01/15/23 15:12 15:12 WBC (4.4-10.8) 10^3/uL 18.26 H RBC (4.36-5.78) 10^6/uL 5.03 Hgb (13.5-17.5) g/dL 13.9 Hct (40.0-50.0) % 42.5 MCV (80-95) fL 85 MCH (27.0-33.0) pg 27.6 MCHC (32.0-36.0) % 32.7 RDW (11.8-14.1) % 14.0 Plt Count (130-400) 10^3/uL 423 H MPV (8.0-11.0) fL 11.0 Immature Gran % 0.0 Neutrophils % 82.0 Band Neutrophils % 2 Lymphocytes % 7.0 Atypical Lymphs % 1 Monocytes % 7.0 Eosinophils % 1.0 Basophils % 0.0 Nucleated RBC % (0.0-0.3) % 0.0 Absolute Neutrophils (1.2-6.7) 10^3/uL 15.34 H Absolute Lymphocytes (1.2-3.4) 10^3/uL 1.46 Absolute Monocytes (0.1-0.8) 10^3/uL 1.28 H Absolute Eosinophils (0.0-0.7) 10^3/uL 0.18 Absolute Basophils (0.0-0.2) 10^3/uL 0.00 RBC Morphology Normal Sodium (136-145) mmol/L 132 L Potassium (3.5-5.1) mmol/L 3.8 Chloride (98-107) mmol/L 98 Carbon Dioxide (21.0-32.0) mmol/L 24.6 Anion Gap (3-11) mmol/L 9.4 BUN (7-18) mg/dL 34 H Creatinine (0.70-1.30) mg/dL 1.3 Est GFR (CKD-EPI 2020) (mL/min/1.73m2) 60.21 Glucose (74-106) mg/dL 220 H Calcium (8.5-10.1) mg/dL 8.6 Sign Out Sign Out Data: Sign Out Comment: Please follow-up labs and CT scan on this patient 8 days status post IR guided splenic embolization at [facility]. Last updated by Mir Mora MD at 01/15/23 15:26 Discharge Plan Disposition Patient Disposition: Transfer-Acute Inpatient Care Specific Acute Inpt Facility: [facility] Discharge Details Clinical Impression: Moderate laceration of spleen, sequela Primary Care Provider: Aram Way ED Provider: Ailyn Estrada Home Meds and New Rx's Prescriptions: No Action cholecalciferol (vitamin D3) 25 mcg (1,000 unit) capsule 25 mcg PO DAILY multivitamin Tablet 1 tab PO DAILY Artificial Tears (saúl/min) 83-15 % ointment 1 applic ophthalmic (eye) BID-QID PRN atorvastatin 10 mg tablet 10 mg PO DAILY omega 4-[id number]-dnu-fish oil [Fish Oil] 1,000 mg (120 mg-180 mg) capsule 1 cap PO DAILY Jardiance 10 mg tablet 10 mg PO DAILY vitamin E (dl, acetate) 45 mg (100 unit) capsule 45 mg PO DAILY zinc acetate 50 mg (zinc) capsule 50 mg PO DAILY hydrochlorothiazide 25 mg tablet 25 mg PO DAILY Patient Comments: TAKE ONE TABLET BY MOUTH EVERY DAY lisinopril 40 mg tablet 40 mg PO DAILY Patient Comments: TAKE ONE TABLET BY MOUTH EVERY DAY Invokana 100 mg tablet 100 mg DAILY Patient Comments: TAKE ONE TABLET BY MOUTH EVERY DAY Januvia 100 mg tablet 100 mg PO DAILY Patient Comments: TAKE ONE TABLET BY MOUTH EVERY DAY metformin 1,000 mg tablet 1,000 mg PO BID Patient Comments: TAKE ONE TABLET BY MOUTH TWICE A DAY atorvastatin 10 mg tablet 10 mg PO DAILY Patient Comments: TAKE ONE TABLET BY MOUTH AT BEDTIME aspirin 81 mg Tablet,Delayed Release (Dr/Ec) 1 mg DAILY Hold Instructions: until discussed with trauma Januvia 100 mg tablet 100 mg PO DAILY Patient Comments: TAKE ONE TABLET BY MOUTH EVERY DAY metoprolol succinate 50 mg tablet extended release 24 hr 1 tab PO DAILY Patient Comments: TAKE ONE TABLET BY MOUTH EVERY DAY aspirin 81 mg Tablet,Delayed Release (Dr/Ec) 81 mg PO DAILY Hold Instructions: duplicate
[2023-01-15] MEDS: ACETAMINOPHEN 1,000 MG/100 ML BTL 400 MG IVPB (15:50)
[2023-01-15 15:53] LABS: Absolute Eosinophil Count 0.18 10^3/uL (0.0-0.7); Absolute Lymphocyte Count 1.46 10^3/uL (1.2-3.4); Absolute Monocyte Count 1.28 10^3/uL (0.1-0.8); Atypical Lymphocytes % 1; Bands % 2; Diff Comment Manual Differential; RBC Morphology Normal
[2023-01-15 15:54] LABS: Absolute Neutrophil Count 15.34 10^3/uL (1.2-6.7)
--- NOTE | 2023-01-15 16:01 | DI.VRAD_ITS ---
Addendum created by Grazyna Cox MD on 01/15/2023 4:02:24 PM EDT: I discussed case findings with Jenny Estrada NP 01/15/2023 4:01 PM EDT. Initial report created on 01/15/2023 3:59:38 PM EDT: PROCEDURE INFORMATION: Exam: CT Abdomen And Pelvis With Contrast Exam date and time: 01/15/2023 3:30 PM Age: 67 years old Clinical indication: Patient HX: Luq pain S/P recent splenic laceration TECHNIQUE: Imaging protocol: Computed tomography of the abdomen and pelvis with contrast. Radiation optimization: All CT scans at this facility use at least one of these dose optimization techniques: automated exposure control; mA and/or kV adjustment per patient size (includes targeted exams where dose is matched to clinical indication); or iterative reconstruction. Contrast material: OMNIPAQUE 350; Contrast volume: 100 ml; Contrast route: INTRAVENOUS (IV); COMPARISON: CT CHEST/ABD/PEL W 01/06/2023 6:18 PM FINDINGS: Pleural spaces: There is a small left pleural effusion with moderate atelectasis. Coronary arteries: Coronary artery calcifications identified. Diaphragm: Small hiatal hernia. Liver: Normal. No mass. Gallbladder and bile ducts: Normal. No calcified stones. No ductal dilation. Pancreas: Normal. No ductal dilation. Spleen: There is a large perisplenic lateral fluid attenuation collection which appears loculated, 14.3 by 4.8 cm, slightly enlarged since previous study. The splenic apex posteriorly has heterogeneity and decreased attenuation possibly with adjacent subcapsular collection. These changes are more conspicuous or new since prior study. Central splenic infarcts again seen. Adrenal glands: Normal. No mass. Kidneys and ureters: Right renal cyst. Renal perfusion symmetric without hydronephrosis or hydroureter. Stomach and bowel: There is soft tissue stranding in the left upper quadrant perisplenic and pericolonic tissues. There is diverticular disease. There is a tiny focus of air density which may lie outside the colonic lumen series 5, images 500 14-521 versus artifact from diverticulum. Appendix: No evidence of appendicitis. Intraperitoneal space: Residual hemoperitoneum seen in the deep pelvis, markedly reduced since previous study. Vasculature: The ascending aorta is dilated, 4.2 cm. Coils are noted at the level of the pancreatic head and splenic vein at the hilar level. Mild atherosclerotic change present in the vasculature.. Lymph nodes: Unremarkable. No enlarged lymph nodes. Urinary bladder: Unremarkable as visualized. Reproductive: Unremarkable as visualized. Bones/joints: Left 7th and possible 12th rib fractures noted. Soft tissues: Unremarkable. IMPRESSION: Enlarging perisplenic fluid attenuation collection with apparent interval development of superior splenic infarct. There is adjacent inflammatory change in the pericolonic tissues at the splenic flexure level. Trace extraluminal air at this level is not excludable versus artifact from diverticular formation. Dictated and Authenticated by: Grazyna Cox MD. Ordering:ENE Hester MD
[2023-01-15] MEDS: Normal Saline 1,000 ML 125 ML IV (19:06)
== END 2023-01-15 19:55 | disposition short-term general hospital (02) ==
PROVIDERS: Emergency Medicine; Emergency Provider Registered Nurse Emergency; PCP Neuromusculoskeletal Medicine & OMM
DX: S36.031A Moderate laceration of spleen, initial encounter (principal); X58.XXXA Exposure to other specified factors, initial encounter; Z98.890 Other specified postprocedural states
CPT/HCPCS: 80048; 86850; 86900; 86901; 96361; 96365; 96375; 99285; 74177; 85025; J0131; J3490